=== PATIENT | male | born 1975 | race Two or more races ===

== ENCOUNTER 2018-09-18 12:51 | Emergency (ER) | payer SELFPAY ==
[~2018-09-18] VITALS: Ht 182.9 cm; Wt 93.4 kg
[2018-09-18 12:54] VITALS: Ht 182.9 cm; Wt 93.4 kg
[2018-09-18 16:01] LABS: CALCIUM 8.4 mg/dL (8.5-10.1); CARBON DIOXIDE 33.8 mmol/L (21-32); CHLORIDE SERUM 99 mmol/L (98-107); CREATININE SERUM 0.9 mg/dL (0.7-1.3); GFR1 > 60 mL/min; GLUCOSE SERUM 110 mg/dL (74-106); POTASSIUM SERUM 3.3 mmol/L (3.5-5.1); SODIUM SERUM 139 mmol/L (136-145)
[2018-09-18 16:02] LABS: BASOPHIL % 0.7 % (0-2)
[2018-09-18 16:07] LABS: ALBUMIN 3.8 g/dL (3.4-5.0); ALKALINE PHOSPHATASE 41 U/L (46-116); ALT/SGPT 58 U/L (16-63); AST/SGOT 30 U/L (15-37); BILIRUBIN TOTAL 0.98 mg/dL (0.20-1.00)
[2018-09-18 16:14] LABS: PLATELET COUNT 218 x10^3mcL (130-400); RED CELL DISTRIBUTION WIDTH 13.6 % (11.5-14.5)
[2018-09-18 16:15] LABS: TOTAL PROTEIN, SERUM 8.4 g/dL (6.4-8.2)
[2018-09-18 17:00] LABS: microscopic required? NO
[2018-09-18 17:05] LABS: UA SPECIFIC GRAVITY 1.015 (1.005-1.035); urine erythrocyte NEGATIVE (NEGATIVE)
[2018-09-18 17:55] VITALS: BP 131/77
== END 2018-09-18 17:55 | disposition home or self-care (01) ==
LOC: ED 12:51
PROVIDERS: Emergency Medicine
DX: R53.1 Weakness (principal); M79.10 Myalgia, unspecified site; R51 Headache; R63.0 Anorexia
CPT/HCPCS: J7030